=== PATIENT | male | born 1990 | race Caucasian/White ===

== ENCOUNTER 2020-08-15 08:21 | Outpatient (CLI) | payer OTHER, SELFPAY ==
[2020-08-15 09:50] LABS: Anion Gap 14 mmol/L (10-20); BUN (Urea Nitrogen) 13 mg/dL (8.9-20.6); Calc. Creatinine Clearance 0 mL/min (70-130); Calcium 9.9 mg/dL (7.8-10.44); Carbon Dioxide 25 mmol/L (22-29); Chloride 106 mmol/L (98-107); Glucose 85 mg/dL (70-105); Potassium 4.3 mmol/L (3.5-5.1); Sodium 141 mmol/L (136-145)
[2020-08-15 14:26] LABS: SARS-CoV-2 PCR by NAA Not Detected (NotDetected)
== END 2020-08-15 08:22 | disposition home or self-care (01) ==
LOC: LABBT 08:21
PROVIDERS: ATTEND Surgery Surgery of the Hand
DX: Z01.812 Encounter for preprocedural laboratory examination (principal); S62.303A Unspecified fracture of third metacarpal bone, left hand, initial encounter for closed fracture; S62.305A Unspecified fracture of fourth metacarpal bone, left hand, initial encounter for closed fracture; Z20.822 Contact with and (suspected) exposure to COVID-19
CPT/HCPCS: 80048; 87635; U0003; U0005

== ENCOUNTER 2020-08-16 10:18 | Day surgery (SDC) | payer SELFPAY ==
[2020-08-15 14:32] VITALS: BMI 36.6
[2020-08-16] MEDS ORDERED: Fentanyl 100 MCG/2 ML VIAL ONE ×3 (12:12→16:17)
[2020-08-16] MEDS ORDERED: EPINEPHrine 1 MG/ML AMP ONE (12:28)
[2020-08-16] MEDS ORDERED: Lidocaine 1% (PF) 30 ML VIAL ONE (12:28)
[2020-08-16] MEDS ORDERED: Bupivacaine 0.25% HCL 30 ML VIAL ONE (12:28)
[2020-08-16] MEDS ORDERED: Clindamycin/D5W 900 mg/50 ml Premix Bag ONE (12:45)
[2020-08-16] MEDS ORDERED: Lidocaine 1% w/Epinephrine 1:100K 20 ML VIAL ONE (12:57)
[2020-08-16] MEDS ORDERED: Lidocaine 1% PF 5 ML VIAL ONE (13:00)
[2020-08-16] MEDS ORDERED: Ondansetron PF 4 MG/2 ML Vial ONE (13:00)
[2020-08-16] MEDS ORDERED: Dexamethasone 20 MG/5 ML VIAL ONE (13:00)
[2020-08-16] MEDS ORDERED: PROPOFOL 200 MG/20 ML VIAL ONE (13:00)
[2020-08-16] MEDS ORDERED: Meperidine HCl/PF 25 MG/ML VIAL ONE (15:45)
[2020-08-16] MEDS ORDERED: Promethazine HCl 25 MG/ML VIAL ONE (16:37)
[2020-08-16] MEDS ORDERED: HYDROcodone/Acetaminophen 5/325 mg Tablet ONE (16:59)
== END 2020-08-16 18:15 | disposition home or self-care (01) ==
LOC: SDC 10:18
PROVIDERS: ATTEND Surgery Surgery of the Hand
PROC: 0PSQ04Z Reposition Left Metacarpal with Internal Fixation Device, Open Approach (ICD-10-PCS; principal; 2020-08-16)
DX: S62.323A Displaced fracture of shaft of third metacarpal bone, left hand, initial encounter for closed fracture (principal); S62.324A Displaced fracture of shaft of fourth metacarpal bone, right hand, initial encounter for closed fracture; K21.9 Gastro-esophageal reflux disease without esophagitis; Z79.899 Other long term (current) drug therapy; Z88.0 Allergy status to penicillin; Z88.5 Allergy status to narcotic agent; W23.1XXA Caught, crushed, jammed, or pinched between stationary objects, initial encounter
CPT/HCPCS: 76000; C1713; J0171; J1100; J2001; J2175; J2405; J2550; J2704; J3010; J3490; S0020